=== PATIENT | female | born 1960 | race Caucasian/White ===

== ENCOUNTER → 2019-04-26 07:39 | Outpatient (CLI) | payer MEDICARE, OTHER, SELFPAY ==
--- NOTE | 2019-04-26 07:41 | CA_ITS ---
APPROVED REPORT EXAM: Comprehensive 2D, Doppler, and color-flow Echocardiogram Manufacture Specialist: Marla Brewster CRT Ht: 5 ft 3 in Wt: 319lbs BSA: 2.36 BP: 112/70 mmHg Indications: DD 2D Dimensions LVOT 1.75 cm (M/F) 1.5-2.5 M-Mode Dimensions RVDd 2.47 cm (0.9-2.6) LVDd 5.10 cm (3.5-5.7) LVDs 3.54 cm (3.5-5.7) IVSd 1.38 cm (0.6-1.1) PWd 0.59 cm (0.6-1.1) EF (Teich) 57.80% FS 30.60% EDV (Teich) 123.80 mL ESV (Teich) 52.30 mL Left Ventricle Left atrium is mildly enlarged, left ventricle is normal size, mild concentric left ventricular hypertrophy, visually estimated ejection fraction 55% with no regional wall motion abnormality, endocardial surfaces are very poorly visualized, diastolic parameters are inconclusive, there was no tissue Doppler performed. Right Ventricle Right atrium and right ventricular relatively normal size and function. Aortic Valve Aortic valve is minimally fibrosed. There is no aortic stenosis aortic insufficiency. Mitral Valve Mitral valve is grossly normal, there is mild mitral regurgitation. Tricuspid Valve Tricuspid valve is grossly normal, there is mild tricuspid regurgitation. Pulmonic Valve Pulmonic valve is poorly visualized. Great Vessels Aortic root is normal size. Pericardium No significant pericardial effusion noted. Conclusion 1. Technically difficult study because of the patient fact in poor acoustic windows. 2. Mildly enlarged left atrium, normal left ventricular size, mild concentric left ventricular hypertrophy, visually estimated ejection fraction 55% with no regional wall motion abnormality, diastolic parameters are inconclusive. There is no tissue Doppler performed. 3. Mild mitral and tricuspid regurgitation. 4. No significant pericardial effusion noted. Electronically signed by : Emmanuel Ley, 04/27/2019 06:53:57
== END ==
PROVIDERS: PCP Family Medicine; Visit Provider Internal Medicine
DX: I50.30 Unspecified diastolic (congestive) heart failure (principal); R06.09 Other forms of dyspnea; R60.9 Edema, unspecified; E66.01 Morbid (severe) obesity due to excess calories
CPT/HCPCS: 93306

== ENCOUNTER → 2021-02-26 09:32 | Outpatient (CLI) | payer MEDICARE, OTHER, SELFPAY ==
--- NOTE | 2021-02-26 | CA_ITS ---
APPROVED REPORT Exam: Pharmacologic Technologist: Fina Danielle Ht: 5 ft 3 in Wt: 241 lbs BSA: 2.09 m2 HR: 65 bpm BP: 102/64 mmHg Indications: Chest pain Medical History Medications: Metformin,,,,, Vitamin D3,,,,, Allopurinol,,,,, Atorvastatin,,,,, Carvedilol,,,,, Farxiga,,,,, EnALAPRIL,,,,, Januvia,,,,, Ibuprofen,,,,, Levothyoxine,,,,, Furosemide,,,,, Stress Test Details Test: LEXISCAN HR Resting HR: 75 bpm Max Heart Rate (APMHR): 160.563145 bpm Max HR Achieved: 99 bpm Target HR (85% APMHR): 136.064349 bpm % of APMHR: 61.88 Recovery HR: 75 bpm BP Resting BP: 102.0/64.0 mmHg Max BP: 113.0/69.0 mmHg Recovery BP: 102.0/56.0 mmHg ECG Clinical Exercise duration: 04:11 min Highest Stage Achieved: Exercise capacity: 1.0 METs Stress ECG Conclusion Symptoms: Shortness of air with Lexiscan infusion, no chest pain, no palpitations. Arrhythmias/Ectopy: PVCs, ventricular trigeminy ST-T Changes: < 1.5mm ST segment changes. Test Summary REST . . . . . . . Resting REST 13:31 . . 75 . 102/ 64 . . Stage 1 . . . . . . . Myoview Injected Stage 1 01:00 . . 97 . . . . Stage 2 01:00 . . 83 . . . . Stage 3 01:00 . . 78 . 108/ 67 . . Stage 4 01:00 . . 85 . 106/ 56 . . Stage 4 01:11 . . 80 . 106/ 56 . Stop exercise at 04:11 RECOVERY 01:00 . . 82 . 113/ 69 . . RECOVERY 02:00 . . 69 . 113/ 69 . . RECOVERY 03:00 . . 74 . 98/ 63 . . RECOVERY 04:00 . . 80 . 98/ 63 . . RECOVERY 04:16 . . 78 . 98/ 63 . . Electronically signed by : Emmanuel Ley MD 02/26/2021 20:46:02
--- NOTE | 2021-02-26 09:34 | CA_ITS ---
APPROVED REPORT EXAM: Comprehensive 2D, Doppler, and color-flow Echocardiogram Anime Artist: Marla Brewster CRT Ht: 5 ft 3 in Wt: 241lbs BSA: 2.09 BP: 107/62 mmHg Indications: Abnormal ECG, Chest Pain, Congestive Heart Failure, Diabetes, Hyperlipidemia 2D Dimensions LVOT 1.97 cm (M/F) 1.5-2.5 LA Volume 37.90 mL LA Volume Index 18.10 mL/m2 (M/F) 16-34 M-Mode Dimensions RVDd 2.65 cm (0.9-2.6) LA Diam 2.70 cm (1.9-4.0) LVDd 3.43 cm (3.5-5.7) Ao Diam 4.11 cm (2.0-3.7) LVDs 2.33 cm (3.5-5.7) IVSd 1.54 cm (0.6-1.1) PWd 1.75 cm (0.6-1.1) EF (Teich) 61.40% FS 32.10% EDV (Teich) 48.50 mL TAPSE 1.66 (<1.7) ESV (Teich) 18.70 mL LV Diastology E Decel Time 313.00 (160-240 msec) E/A Ratio 0.81 MED E' 5.80 (< 7 cm/sec) MED A' 8.70 cm/s E'/MED E' Ratio 12.60 (>14) LAT E' 7.00 (<10 cm/sec) LAT A' 9.00 cm/s E/LAT E' Ratio 10.44 (>14) Aortic Valve AO Peak GR. 7.60 mmHg Mitral Valve MV A Velocity 90.00 (40-130 cm/s) E/A Ratio 0.81 MV Decel. Time 313.00 (160-240 ms) Pulmonary Valve PV Peak Velocity 99.00 (50-150 cm/s) Tricuspid Valve TR P. Velocity 160.00 cm/s RAP Estimate 10.00 mmHg RVSP 20.20 mmHg Left Ventricle Technically difficult study because of the patient factors and poor acoustic windows. Left atrium is mildly enlarged, left ventricle is normal size, mild concentric left ventricular hypertrophy, visually estimated ejection fraction 55% with no regional wall motion abnormality, endocardial surfaces are poorly visualized. Grade 1 diastolic dysfunction seen without tissue Doppler evidence of raise left atrial pressure. Right Ventricle Right atrium and right ventricle are normal size and contractility. Aortic Valve Aortic valve is minimally thickened and fibrosed, there is no aortic stenosis or aortic insufficiency. Mitral Valve Mitral valve is grossly normal, there is trace mitral regurgitation. Tricuspid Valve Tricuspid valve grossly normal, there is trace tricuspid regurgitation, tricuspid regurgitation jet velocity is inadequate for calculation of the right ventricular systolic pressure. Pulmonic Valve Pulmonic valve is poorly visualized. Great Vessels Aortic root is normal size. Inferior vena cava is poorly visualized. Pericardium No significant pericardial effusion noted. Conclusion 1. Technically difficult study because of the patient factors and poor acoustic windows. Left atrium is mildly enlarged, left ventricle is normal size, mild concentric left ventricular hypertrophy, visually estimated ejection fraction 55% with no regional wall motion abnormality, grade 1 diastolic dysfunction seen without tissue Doppler evidence of raise left atrial pressure. 2. Mild mitral and tricuspid regurgitation. 3. No significant pericardial effusion noted. Electronically signed by : Emmanuel Ley MD 02/26/2021 20:35:02
--- NOTE | 2021-02-26 11:17 | NM_ITS ---
APPROVED REPORT Exam: Nuclear Stress Test Indication: Abnormal EKG, Pre op, SOB, Chest pain, HTN, DM, High cholesterol, Family history Patient Location: Outpatient Stress Tech: Fina Danielle NH Tech:Joan Tom, ARRT, RT (R)(N) Ht: 5 ft 3 in Wt: 240 lbs Bra Size: 46D HR: 65 bpm BP: 102/64 mmHg BSA: 2.09 m2 BMI: 42.5 History: Abnormal EKG, Pre op, SOB, Chest pain, HTN, DM, High cholesterol, Family history Procedure: Patient received a 0.4 mg of intravenous Lexiscan, resting heart rate 65 bpm, resting blood pressure 102/64 mmHg, with Lexiscan maximum heart rate achived was 73 bpm which is Less than 85 % of the maximum predicted heart rate and blood pressure was 113/69 mmHg. With Lexiscan, patient denied any complaint of chest pain. Electrocardiogram Resting electrocardiogram shows sinus rhythm, with Lexiscan there is less than 1.[address] segment depression noted from the baseline EKG, premature ectopic beats were present throughout. The EKG portion of the Lexiscan is nondiagnostic. Cardiac Stress and Resting SPECT Images: Cardiac Stress and Resting SPECT images were obtained using technetium 99m Myoview 32.7 mCi stress and 10.91 mCi at rest. Gated SPECT for analysis of segmental wall motion and calculation of the ejection fraction also done. Cardiac stress and resting SPECT images show reversible ischemia involving the anterior, anterior apical and anteroseptal wall, computer derived ejection fraction 51% with no obvious regional wall motion abnormality, right ventricle is mildly enlarged with normal contractility, there is transient ischemic dilatation of the left ventricle seen. Conclusion: 1. The EKG portion of the Lexiscan is nondiagnostic. 2. Scintigraphic evidence of reversible ischemia seen involving the anterior, anterior apical and anteroseptal wall, computer derived ejection fraction is 51% with no segmental wall motion abnormality, right ventricle is mildly enlarged with normal contractility, there is transient ischemic dilatation of the left ventricle seen. 3. Abnormal Lexiscan Myoview study. Electronically signed by : Emmanuel Ley MD 02/26/2021 20:52:52
--- NOTE | 2021-02-26 12:49 | HMH.ITSHM ---
Current Home Medications as stated by this patient Isela Smith or product sales representative. []ATORVASTATIN CARVEDILOL VITAMIN D3 FARXIGA ENALAPRIL ALLOPURINOL LEVOTHYROXINE METFORMIN JANUVIA FUROSEMIDE
== END ==
PROVIDERS: PCP Family Medicine; Visit Provider Urology
DX: Z01.810 Encounter for preprocedural cardiovascular examination (principal); I11.0 Hypertensive heart disease with heart failure; R94.31 Abnormal electrocardiogram [ECG] [EKG]; E78.5 Hyperlipidemia, unspecified
CPT/HCPCS: 78452; 93017; 93306; A9502; J2785

== ENCOUNTER 2021-03-16 08:45 | Day surgery (SDC) | payer MEDICARE, OTHER, SELFPAY ==
[2021-03-16] VITALS (13 sets, daily range): BP systolic 93–117; BP diastolic 59–75; PULSE 57–97; RESP 16–20; TEMP 36.9; O2SAT 93–98; BMI 40.1
--- NOTE | 2021-03-16 07:13 | IR_ITS ---
APPROVED REPORT Patient Location: Outpatient PROCEDURES Left heart catheterization Left ventriculogram Selective coronary angiogram INDICATION High risk abnormal Myoview anterior ischemia Informed consent was obtained prior to the procedure. COMPLICATIONS NONE Estimated Blood Loss: LESS THAN 10 ML TECHNIQUE One percent lidocaine used to anesthetize the right anterior aspect of the wrist. The right radial artery was accessed via the Seldinger technique. A 6 Irish sheath was placed in the right radial artery. 2.5 mg of verapamil, 800 mcg of nitroglycerin, 1mg Lidocaine and 5000 U Heparin were given through the arterial sheath. The trap catheter was also used to perform left heart catheterization, left ventriculogram and selective coronary angiogram. At the end of the procedure the sheath was removed good hemostasis was achieved using Traclet band, patient was transferred to the postop holding area in stable condition. ANGIOGRAPHIC RESULTS The left main artery Normal The left anterior descending artery Has proximal 20% stenoses with mild diffuse luminal irregularities accompanied by DINH II flow throughout the vessel The circumflex artery Codominant with mild diffuse 10% luminal irregularities The right coronary artery Codominant with mild vascular ectasia in the proximal segment accompanied by diffuse mild luminal irregularities. DINH II flow was present The DIXON ventriculogram reveals 65 to 70% The left ventricular end-diastolic pressure Elevated at 25 mmHg IMPRESSION Slow flow down both the LAD and the right coronary consistent with moderate to severe endothelial dysfunction Elevated LVEDP consistent with diastolic dysfunction Mild nonflow limiting coronaries Slightly hyperdynamic ejection fraction PLAN 1. Treat diastolic dysfunction and endothelial dysfunction 2. Continue risk factor modification Electronically signed by : Anthony Avilez MD 03/16/2021 11:48:57
[2021-03-16 09:05] LABS: Coronavirus 19, PCR Not Detected (NotDetected); Influenza A, PCR Not Detected (NotDetected); Influenza B, PCR Not Detected (NotDetected)
[2021-03-16 09:23] LABS: Basophils # 0.1 K/mm3 (0-0.2); Basophils % 0.9 % (0.1-2.0); Eosinophils # 0.2 K/mm3 (0.0-0.4); Eosinophils % 2.7 % (0.1-12.0); Hematocrit 42.3 % (37.0-47.0); Hemoglobin 13.1 g/dL (12.2-16.2); Lymphocytes % 23.7 % (10-50); Mean Corpuscular HGB Conc 30.9 g/dL (31.8-35.4); Mean Corpuscular Volume 93.7 fl (81-99); Mean Platelet Volume 9.7 fl (7.4-10.4); Monocytes # 0.5 K/mm3 (0.1-1.0); Monocytes % 5.7 % (1.7-9.3); Neutrophils # 5.7 K/mm3 (1.8-7.8); Neutrophils % 67.1 % (37.0-80.0); Platelet Count 351 K/mm3 (142-424); Red Blood Count 4.52 M/mm3 (4.20-5.40); Red Cell Distribution Width 16.3 % (11.5-17.5); White Blood Count 8.5 K/mm3 (4.8-10.8)
[2021-03-16 09:39] LABS: Chloride 100 mmol/L (98-107); Potassium 4.2 mmoL/L (3.5-5.1); Sodium 138 mmol/L (136-145)
[2021-03-16 09:42] LABS: Anion Gap 13.2 mEq/L (5-15); Blood Urea Nitrogen 13 mg/dl (7-17); Calcium 10.6 mg/dl (8.4-10.2); Carbon Dioxide 29 mmol/L (22.0-30.0); Estimated Glomerular Filt Rate 57 ml/min (>60); GFR (African American) 68 ML/MIN (>60); Glucose 119 mg/dl (74-100)
== END 2021-03-16 14:51 | disposition home or self-care (01) ==
PROVIDERS: PCP Family Medicine; Visit Provider Internal Medicine
DX: R07.9 Chest pain, unspecified (principal); I11.0 Hypertensive heart disease with heart failure; E11.9 Type 2 diabetes mellitus without complications; Z79.84 Long term (current) use of oral hypoglycemic drugs; I50.32 Chronic diastolic (congestive) heart failure; E78.5 Hyperlipidemia, unspecified; R94.39 Abnormal result of other cardiovascular function study; K21.9 Gastro-esophageal reflux disease without esophagitis; E66.01 Morbid (severe) obesity due to excess calories; Z68.41 Body mass index [BMI] 40.0-44.9, adult; Z20.822 Contact with and (suspected) exposure to COVID-19
CPT/HCPCS: 36415; 80048; 85025; 93458; 99152; C1725; C1769; C9803; J1644; Q9967; U0003; U0005

== ENCOUNTER → 2022-12-03 12:32 | Outpatient (CLI) | payer MEDICARE, BC, OTHER, SELFPAY | PROVIDERS: PCP Family Medicine; Visit Provider Nurse Practitioner Family | DX: E78.2 Mixed hyperlipidemia (principal); I11.0 Hypertensive heart disease with heart failure; I25.118 Atherosclerotic heart disease of native coronary artery with other forms of angina pectoris; R06.09 Other forms of dyspnea; R42 Dizziness and giddiness; R60.0 Localized edema | CPT/HCPCS: 93306 ==